=== PATIENT | male | born 1970 | race American Indian/Alaskan Native ===

== ENCOUNTER 2016-12-03 11:13 | Emergency (ER) | payer BC ==
[2016-12-03 12:10] LABS: Hematocrit 46.8 % (35.5-45.6); Hemoglobin 14.9 gm/dl (11.8-15.2); Mean Corpuscular HGB Conc 32 % (32-34); Mean Corpuscular Hemoglobin 28 pg (28-32); Mean Corpuscular Volume 86 fl (84-94); Platelet Count 338 K/mm3 (140-440); Red Blood Count 5.44 M/mm3 (3.65-5.03); Red Cell Distribution Width 13.9 % (13.2-15.2); White Blood Count 15.3 K/mm3 (4.5-11.0)
[2016-12-03 12:17] LABS: Basophils % (Auto) 0.5 % (0.0-1.8); Eosinophils % (Auto) 0.4 % (0.0-4.3)
[2016-12-03 12:24] LABS: Alanine Aminotransferase 28 units/L (7-56); Albumin 4.1 g/dL (3.9-5); Albumin/Globulin Ratio 1.4 %; Alkaline Phosphatase 83 units/L (35-129); Anion Gap 18 mmol/L; Blood Urea Nitrogen 9 mg/dL (9-20); Calcium 9.4 mg/dL (8.4-10.2); Carbon Dioxide 24 mmol/L (22-30); Chloride 96.5 mmol/L (98-107); Glucose 201 mg/dL (75-100); Lipase 98 units/L (13-60); Sodium 134 mmol/L (137-145); Total Protein 7.1 g/dL (6.3-8.2)
--- NOTE | 2016-12-03 13:03 | Emergency Department Report ---
Entered by GIANCARLO CONTRERAS, acting as scribe for CHRISTEN TOBAR PA. Chief Complaint: Abdominal Pain Stated Complaint: LEFT SIDE PAIN/MOUTH RASH Time Seen by Provider: 12/03/16 12:43 - HPI History of Present Illness: 46 y/o male presents c/o left flank pain that started 1 week ago. Sx include n/ v but pt denies dysuria, hematuria or penile discharge. Secondary complaints of left side mouth pain for 8 months, tightness in lower back and chronic intermittent neck spasms. - ROS Review of Systems: as noted in HPI - Exam Vital Signs: Vital Signs 12/03/16 11:41 Temperature 98.4 F Pulse Rate 84 Respiratory 20 Rate Blood Pressure 138/85 O2 Sat by Pulse 98 Oximetry Physical Exam: General: 46 y/o male in no acute distress. Well-developed, well-nourished. CV: Regular rate and rhythm. No murmurs rubs or gallops. Lungs: Clear to auscultation bilaterally. Abdomen: left flank tenderness. No guarding or rebound tenderness. Normal bowel sounds. Mini Neuro: Alert and oriented 3. musc: right neck muscle tenderness, bilateral lumbar spine tenderness. no cervical spine or lumbar spine tenderness MSE screening note: Focused history and physical exam performed. Due to findings the following was ordered:abdominal protocol ED Medical Decision Making - Lab Data Result diagrams: 12/03/16 11:47 12/03/16 11:47 ED Disposition for MSE Condition: Stable Referrals: AMBER NEGRETE MD [Primary Care Provider] - 3-5 Days This documentation as recorded by the scribe,GIANCARLO CONTRERAS,accurately reflects the service I personally performed and the decisions made by EKATERINA ambrocio FABIOLA N, PA.
[2016-12-03 13:15] LABS: Bilirubin,Urine NEG (Negative); Blood,Urine NEG (Negative); Ketones,Urine NEG (Negative); Leukocyte Esterase,Urine NEG (Negative); Nitrite,Urine NEG (Negative); Protein,Urine <15 mg/dL mg/dL (Negative); Urobilinogen,Urine < 2.0 mg/dL (<2.0)
[2016-12-03] MEDS ORDERED: NACL 0.9% 1000 ML 2,000 ML IV ONE (14:27)
[2016-12-03] MEDS ORDERED: NACL ONE (14:59)
--- NOTE | 2016-12-03 15:44 | Emergency Department Report ---
ED Abdominal Pain HPI - General Chief Complaint: Abdominal Pain Stated Complaint: LEFT SIDE PAIN/MOUTH RASH Time Seen by Provider: 12/03/16 14:26 Source: patient Mode of arrival: Ambulatory Limitations: No Limitations - History of Present Illness Complaint: abdominal pain -: Gradual, days(s) Location: LLQ Radiation: none Migration to: no migration Severity: mild Severity scale (0 -10): 2 Quality: aching Consistency: constant Improves With: nothing Worsens With: nothing Associated Symptoms: denies: vomiting, diarrhea, fever, chills, constipation, dysuria, hematemesis, hematochezia, melena, hematuria, anorexia, syncope - Related Data Home Medications Medication Instructions Recorded Confirmed Last Taken metFORMIN [Glucophage] 500 mg PO BID 12/03/16 12/03/16 12/03/16 Previous Rx's Medication Instructions Recorded Last Taken Type Amoxicillin/K Clav Tab [Augmentin 1 each PO BID #20 tablet 12/03/16 Unknown Rx 875MG TAB] HYDROcodone/APAP 5-325 [[place] 1 each PO Q4HR PRN #12 tablet 12/03/16 Unknown Rx 5/325] Allergies Allergy/AdvReac Type Severity Reaction Status Date / Time No Known Allergies Allergy Unverified 07/31/13 09:42 ED Review of Systems ROS: Stated complaint: LEFT SIDE PAIN/MOUTH RASH Other details as noted in HPI Other: GENERAL: No weight change, fatigue, weakness, fever, chills, or night sweats SKIN: No changes in skin or hair, no itching, no rashes, no jaundice HEAD: No trauma, headache, or visual changes EYES: No blurriness, tearing, itching, acute visual loss, conjunctival discoloration, or scleral icterus EARS: No hearing loss, tinnitus, vertigo, or earache NOSE: No rhinorrhea, stuffiness, sneezing, itching, or epistaxis MOUTH: No bleeding gums, hoarseness, sore throat, or swelling CARDIAC: No new murmur, chest pain, palpitations, dyspnea on exertion, orthopnea , PND, or edema RESPIRATORY: No shortness of breath, wheeze, cough, sputum production, hemoptysis, pneumonia, asthma, bronchitis, or emphysema GI: Abdominal pain URINARY: No frequency, urgency, polyuria, dysuria, hematuria, or incontinence MUSCULOSKELETAL: No muscle weakness, joint stiffness, decrease in range of motion, redness, swelling, tenderness NEUROLOGIC: No loss of sensation, numbness, tingling, tremors, weakness, paralysis, seizures HEMATOLOGIC: No anemia, easy bruising, bleeding, petechiae, or purpura ENDOCRINE: No hot or cold intolerance, sweating, polyuria, polydipsia or, polyphagia no thyroid problems PSYCHIATRIC: No change in mood, no anxiety, no depression ED Past Medical Hx - Past Medical History Previous Medical History?: Yes Hx Diabetes: Yes (no meds) Hx Kidney Stones: Yes - Surgical History Past Surgical History?: No - Social History Smoking Status: Current Every Day Smoker Substance Use Type: Alcohol, Non Opiate Pain, Other - Medications Home Medications: Home Medications Medication Instructions Recorded Confirmed Last Taken Type Amoxicillin/K Clav Tab [Augmentin 1 each PO BID #20 tablet 12/03/16 Unknown Rx 875MG TAB] HYDROcodone/APAP 5-325 [[place] 1 each PO Q4HR PRN #12 tablet 12/03/16 Unknown Rx 5/325] metFORMIN [Glucophage] 500 mg PO BID 12/03/16 12/03/16 12/03/16 History ED Physical Exam - General Limitations: No Limitations - Other Other exam information: GENERAL: Patient in no acute distress HEAD: Normocephalic, atraumatic EYES: PERRLA, EOM intact, no scleral icterus, no papilledema, no conjunctival hemorrhage, visual hansen and acuity wnl, NOSE: No tenderness, discharge, sinus tenderness MOUTH: No erythema, bleeding, exudate HEART: Regular rate and rhythm, no murmur, S1-S2 are auscultated, pulses are symmetric LUNGS: No wheezing, rales, rhonchi, bilateral breath sounds ABDOMEN: Normal bowel sounds, no tenderness, no rebound, no guarding, no masses , no CVA tenderness MUSCULOSKELETAL: Normal joint range of motion, no redness, no swelling, no tenderness NEUROLOGIC: GCS 15, Alert and Oriented x3, Cranial nerves intact, normal sensation, normal strength, normal gait, no cerebellar deficit PSYCHIATRIC: No homicidal or suicidal ideation, no anxiety, no depression, no hallucinations SKIN: Skin is warm and dry, no wounds, no rashes ED Course Vital Signs 12/03/16 12/03/16 12/03/16 11:41 13:14 16:20 Temperature 98.4 F 98 F 98.2 F Pulse Rate 84 89 90 Respiratory 20 16 16 Rate Blood Pressure 138/85 Blood Pressure 135/95 139/89 [Left] O2 Sat by Pulse 98 98 96 Oximetry ED Medical Decision Making - Lab Data Result diagrams: 12/03/16 11:47 12/03/16 11:47 - EKG Data When compared to previous EKG there are: no significant change - Radiology Data Radiology results: report reviewed - Medical Decision Making Patient comfortable. Updated with results. Plan discharge with outpatient follow-up. Patient agrees with plan and will return if symptoms worsen. Critical care attestation.: If time is entered above; I have spent that time in minutes in the direct care of this critically ill patient, excluding procedure time. ED Disposition Clinical Impression: Diverticulitis Qualifiers: Diverticulitis site: unspecified part of intestinal tract Diverticulitis bleeding: without bleeding Diverticulitis complication: without perforation or abscess Qualified Code(s): K57.92 - Diverticulitis of intestine, part unspecified, without perforation or abscess without bleeding Disposition: DISCHARGED TO HOME OR SELFCARE Is pt being admited?: No Condition: Stable Instructions: Diverticulitis (ED) Prescriptions: Amoxicillin/K Clav Tab [Augmentin 875MG TAB] 1 each PO BID #20 tablet HYDROcodone/APAP 5-325 [[place] 5/325] 1 each PO Q4HR PRN #12 tablet PRN Reason: Pain Referrals: [facility] [Provider Group] - 2-3 Days AMBER NEGRETE MD [Primary Care Provider] - 2-3 Days Forms: Work/School Release Form(ED)
--- NOTE | 2016-12-03 16:00 | Cat Scan Report ---
CT SCAN OF THE ABDOMEN AND PELVIS WITH CONTRAST: HISTORY: Abdominal pain. TECHNIQUE: Helical CT in 1.25mm intervals following IV contrast. Sagittal and coronal reconstructions. FINDINGS: There are scattered diverticula in the descending colon with focal inflammatory changes and trace surrounding fluid. Acute diverticulitis is suspected until proven otherwise. There is no evidence for abscess or free air. The remaining bowel loops and appendix are unremarkable. The liver is normal in size and is without focal defect. No gallstones or biliary dilatation are noted. The spleen and pancreas demonstrate a normal size and attenuation with no evidence of abnormal mass. The kidneys are normal in size and position with no evidence of hydronephrosis or mass. The adrenal glands are normal. The abdominal aorta is normal. No abnormalities are identified within the retroperitoneum or mesentery. There is no evidence of peritoneal air or fluid. There is no evidence of any abnormal masses or fluid collections within the pelvis. No adenopathy is identified. The bladder is normal. IMPRESSION: Acute diverticulitis of the descending colon.
[2016-12-03 16:30] VITALS: BP 139/89
[2016-12-03] MEDS ORDERED: AUGMENTIN 875 MG PO ONE (16:57)
== END 2016-12-03 17:12 | disposition home or self-care (01) ==
LOC: ED 11:13
DX: K57.92 Diverticulitis of intestine, part unspecified, without perforation or abscess without bleeding (principal); E11.9 Type 2 diabetes mellitus without complications; F17.200 Nicotine dependence, unspecified, uncomplicated
CPT/HCPCS: 36415; 74177; 80053; 81001; 83690; 85025; 96360; 96361; 99284; J7030; Q9967

== ENCOUNTER 2018-10-16 15:10 | Emergency (ER) | payer BC, OTHER ==
[2018-10-16 15:22] VITALS: BP 124/74
--- NOTE | 2018-10-16 15:25 | Emergency Department Report ---
Chief Complaint: High BP Stated Complaint: HBP Time Seen by Provider: 10/16/18 15:20 - HPI History of Present Illness: 48 y o male with a PMH of DM on metformin 1000 mg BID presents to ED stating he was not able to see his PCP and has run out of his metformin x 2 days states he needs his medicattion denies f/cp/sob/dizziness/ - ROS Review of Systems: as noted in HPI - Exam Physical Exam: GENERAL: Alert and oriented x3, no apparent distress, Normal Gait, atraumatic. HEAD: Head is normocephalic and a-traumatic. EYES: Extra ocular muscles are intact. Pupils are equal, round, and reactive to light and accommodation. LUNGS: Symetrical with respiration, No wheezing, no rales or crackles, CTAB. HEART: S1, S2 present, regular rate and rhythm without murmur, no rubs, no gal lops. Non tender to palpation ABDOMEN: No organomegaly was noted,Positive bowel sounds, soft, and non- distended. Nontender to palpation on all Quadrants, NO CVA tenderness. EXTREMITIES/MUSCULOSKELETAL: No cyanosis, clubbing, rash, lesions or edema. SKIN: Warm and dry, No lesions, No ulceration or induration present. MSE screening note: Focused history and physical exam performed. Due to findings the following was ordered: ED Medical Decision Making - Medical Decision Making 48-year-old male with a history of diabetes ran out of his medication presents for medication refill Patient is in no acute distress blood glucose was 201. Patient states he will follow-up with his primary care physician He is in no acute respiratory distress. ED Disposition for MSE Clinical Impression: Medication refill, Diabetes mellitus Disposition: -01 TO HOME OR SELFCARE Is pt being admited?: No Does the pt Need Aspirin: No Condition: Stable Instructions: Diabetes Mellitus Type 2 in Adults (ED) Additional Instructions: follow up with your PCP take your medication as prescribed Prescriptions: metFORMIN [Glucophage] 1,000 mg PO BID #60 tablet Referrals: AMBER NEGRETE MD [Primary Care Provider] - 3-5 Days Forms: Work/School Release Form(ED) Time of Disposition: 15:36
== END 2018-10-16 15:44 | disposition home or self-care (01) ==
LOC: ED 15:10
DX: E11.9 Type 2 diabetes mellitus without complications (principal); Z76.0 Encounter for issue of repeat prescription; Z79.84 Long term (current) use of oral hypoglycemic drugs
CPT/HCPCS: 82962; 99282

== ENCOUNTER 2019-10-14 19:47 | Emergency (ER) | payer BC ==
[2019-10-15] MEDS ORDERED: TETANUS,DIPH,PERTUSS(ACELL) VACCINE 0.5 ML SYRINGE IM ONE (02:41)
--- NOTE | 2019-10-15 02:47 | Emergency Department Report ---
- General Chief complaint: Skin/Abscess/Foreign Body Stated complaint: BITE ON BACK OF NECK Time Seen by Provider: 10/15/19 02:28 Source: patient Mode of arrival: Ambulatory Limitations: No Limitations - History of Present Illness Initial comments: Patient is a 49-year-old male who presents emergency room with complaints of a lump to the back of the neck for a week. He states he is also had multiple small lumps present in the right axilla. He denies any drainage, fever, vomiting, chills. He states that he felt like he had a staying abdomen on the back of the neck and believes he was bit by something but did not see anything. He states that he has had these come up before but has never had to have an I&D. He states his last tetanus immunization has been greater than 10 years. He has a past medical history of diabetes which he states is well controlled on metformin. He denies any allergies to medications. - Related Data Home Medications Medication Instructions Recorded Confirmed Last Taken metFORMIN [Glucophage] 500 mg PO BID 12/03/16 12/03/16 12/03/16 Previous Rx's Medication Instructions Recorded Last Taken Type Amoxicillin/K Clav Tab [Augmentin 1 each PO BID #20 tablet 12/03/16 Unknown Rx 875MG TAB] HYDROcodone/APAP 5-325 [[place] 1 each PO Q4HR PRN #12 tablet 12/03/16 Unknown Rx 5/325] metFORMIN [Glucophage] 1,000 mg PO BID #60 tablet 10/16/18 Unknown Rx Clindamycin [Clindamycin CAP] 450 mg PO TID 7 Days #63 capsule 10/15/19 Unknown Rx Sulfamethoxazole/Trimethoprim 1 each PO BID 10 Days #20 tablet 10/15/19 Unknown Rx [Bactrim DS TAB] Allergies Allergy/AdvReac Type Severity Reaction Status Date / Time No Known Allergies Allergy Verified 10/16/18 15:20 Abscess Boil HPI - HPI Chief Complaint: Skin/Abscess/Foreign Body Stated Complaint: BITE ON BACK OF NECK Time Seen by Provider: 10/15/19 02:28 Home Medications: Home Medications Medication Instructions Recorded Confirmed Last Taken metFORMIN [Glucophage] 500 mg PO BID 12/03/16 12/03/16 12/03/16 Previous Rx's Medication Instructions Recorded Last Taken Type Amoxicillin/K Clav Tab [Augmentin 1 each PO BID #20 tablet 12/03/16 Unknown Rx 875MG TAB] HYDROcodone/APAP 5-325 [[place] 1 each PO Q4HR PRN #12 tablet 12/03/16 Unknown Rx 5/325] metFORMIN [Glucophage] 1,000 mg PO BID #60 tablet 10/16/18 Unknown Rx Clindamycin [Clindamycin CAP] 450 mg PO TID 7 Days #63 capsule 10/15/19 Unknown Rx Sulfamethoxazole/Trimethoprim 1 each PO BID 10 Days #20 tablet 10/15/19 Unknown Rx [Bactrim DS TAB] Allergies/Adverse Reactions: Allergies Allergy/AdvReac Type Severity Reaction Status Date / Time No Known Allergies Allergy Verified 10/16/18 15:20 ED Review of Systems ROS: Stated complaint: BITE ON BACK OF NECK Other details as noted in HPI Comment: All other systems reviewed and negative ED Past Medical Hx - Past Medical History Previous Medical History?: Yes Hx Diabetes: Yes (no meds) Hx Kidney Stones: Yes - Surgical History Past Surgical History?: No - Social History Smoking Status: Current Every Day Smoker - Medications Home Medications: Home Medications Medication Instructions Recorded Confirmed Last Taken Type Amoxicillin/K Clav Tab [Augmentin 1 each PO BID #20 tablet 12/03/16 Unknown Rx 875MG TAB] HYDROcodone/APAP 5-325 [[place] 1 each PO Q4HR PRN #12 tablet 12/03/16 Unknown Rx 5/325] metFORMIN [Glucophage] 500 mg PO BID 12/03/16 12/03/16 12/03/16 History metFORMIN [Glucophage] 1,000 mg PO BID #60 tablet 10/16/18 Unknown Rx Clindamycin [Clindamycin CAP] 450 mg PO TID 7 Days #63 capsule 10/15/19 Unknown Rx Sulfamethoxazole/Trimethoprim 1 each PO BID 10 Days #20 tablet 10/15/19 Unknown Rx [Bactrim DS TAB] ED Physical Exam - General Limitations: No Limitations General appearance: alert, in no apparent distress - Head Head exam: Present: atraumatic, normocephalic - Eye Eye exam: Present: normal appearance - ENT ENT exam: Present: mucous membranes moist - Neurological Exam Neurological exam: Present: alert, oriented X3 - Psychiatric Psychiatric exam: Present: normal affect, normal mood - Skin Skin exam: Present: warm, dry, other (1 cm area of induration present to the right posterior neck, no central fluctuance, no drainage, no necrosis, no blistering, no surrounding erythema, three small areas of induration present to the right axilla, no central fluctuance, no surrounding erythema, no necrosis, no blistering) ED Course Vital Signs 10/14/19 20:49 Temperature 98.2 F Pulse Rate 95 H Respiratory 18 Rate Blood Pressure 120/78 O2 Sat by Pulse 95 Oximetry ED Medical Decision Making - Medical Decision Making Patient is a 49-year-old male who presents emergency room with complaints of a lump to the back of the neck for a week. He states he is also had multiple small lumps present in the right axilla. He denies any drainage, fever, vomiting, chills. He states that he felt like he had a staying abdomen on the back of the neck and believes he was bit by something but did not see anything. He states that he has had these come up before but has never had to have an I&D. He states his last tetanus immunization has been greater than 10 years. He has a past medical history of diabetes which he states is well controlled on metformin. He denies any allergies to medications. VSS. on exam: 1 cm area of induration present to the right posterior neck, no central fluctuance, no drainage, no necrosis, no blistering, no surrounding erythema, three small areas of induration present to the right axilla, no central fluctuance, no surrounding erythema, no necrosis, no blistering. Examination consistent with early abscesses versus hidradenitis in the axilla. Patient does not need incision and drainage at this time. pt given tetanus immunization. Patient will be placed on clindamycin and Bactrim and discussed with pt that he needed to have the area reexamined in 3 days. advised to Please take medication as prescribed to completion. Please use warm compresses 3 times a day. Please have the area reexamined in the next 3 days by your primary care physician. Return to the emergency room immediately for any new or worsening symptoms or if symptoms are not improving. You may have to have a procedure called an incision and drainage performed if it enlarges and becomes worse. - Differential Diagnosis Abscess, cellulitis, folliculitis, hidradenitis, insect bite, spider bite Critical care attestation.: If time is entered above; I have spent that time in minutes in the direct care of this critically ill patient, excluding procedure time. ED Disposition Clinical Impression: Abscess Disposition: DC-01 TO HOME OR SELFCARE Is pt being admited?: No Does the pt Need Aspirin: No Condition: Stable Instructions: Abscess (ED) Additional Instructions: Please take medication as prescribed to completion. Please use warm compresses 3 times a day. Please have the area reexamined in the next 3 days by your primary care physician. Return to the emergency room immediately for any new or worsening symptoms or if symptoms are not improving. You may have to have a procedure called an incision and drainage performed if it enlarges and becomes worse. Prescriptions: Sulfamethoxazole/Trimethoprim [Bactrim DS TAB] 1 each PO BID 10 Days #20 tablet Clindamycin [Clindamycin CAP] 450 mg PO TID 7 Days #63 capsule Referrals: CONNER FAUST MD [Staff Physician] - 3-5 Days [facility] [Outside] - 3-5 Days [facility] [Outside] - 3-5 Days Time of Disposition: 02:44 Print Language: WALLISIAN
[2019-10-15 07:39] VITALS: BP 131/89
== END 2019-10-15 03:00 | disposition home or self-care (01) ==
LOC: ED 19:47
DX: L02.11 Cutaneous abscess of neck (principal); E11.9 Type 2 diabetes mellitus without complications; F17.200 Nicotine dependence, unspecified, uncomplicated; Z87.442 Personal history of urinary calculi; Z79.84 Long term (current) use of oral hypoglycemic drugs; Z79.899 Other long term (current) drug therapy
CPT/HCPCS: 90471; 90715; 99282

== ENCOUNTER 2019-11-26 14:57 | Emergency (ER) | payer BC ==
[2019-11-26 15:06] VITALS: BP 133/87
--- NOTE | 2019-11-26 15:51 | Emergency Department Report ---
Chief Complaint: Sore Throat Stated Complaint: SORE THROAT Time Seen by Provider: 11/26/19 15:47 - HPI History of Present Illness: 49-year-old -[place] male presents to the emergency room for sore throat x2 months. Patient states that he had recently stopped smoking last month. Review of patient's chart shows that he was here last month and was placed on clindamycin and Bactrim. Patient states is been taking Aleve. Patient currently takes no medications on a daily basis - Exam Vital Signs: Vital Signs 11/26/19 15:03 Temperature 98.1 F Pulse Rate 91 H Respiratory 18 Rate Blood Pressure 133/87 [Left] O2 Sat by Pulse 97 Oximetry Physical Exam: Gen: alert oriented NAD Throat mild edematous of the tonsils, no exudate no lesions. No trouble swallowing Ambulatory without difficulties MSE screening note: Focused history and physical exam performed. Due to findings the following was ordered: 49-year-old -[place] male presents to the emergency room for sore throat x2 months. Patient states that he had recently stopped smoking last month. Review of patient's chart shows that he was here last month and was placed on c lindamycin and Bactrim. Patient states is been taking Aleve. Patient currently takes no medications on a daily basis. Patient has been on 2 antibiotics within a month that we will treat any strep t hroat. I discussed with patient that he needs to follow-up with the ear nose and throat provider. Patient continue taking ibuprofen and Tylenol as needed for pain management ED Disposition for MSE Disposition: Z-07 MED SCREENING EXAM-LEFT Is pt being admited?: No Does the pt Need Aspirin: No Condition: Stable Additional Instructions: Patient has been on 2 antibiotics within a month that we will treat any strep throat. I discussed with patient that he needs to follow-up with the ear nose and throat provider. Patient continue taking ibuprofen and Tylenol as needed for pain management Referrals: BESSIE GARDNUO MD [Staff Physician] - 3-5 Days Forms: Work/School Release Form(ED)
== END 2019-11-26 16:07 | disposition left against medical advice (07) ==
LOC: ED 14:57
DX: J02.9 Acute pharyngitis, unspecified (principal)
CPT/HCPCS: 99281

== ENCOUNTER 2021-03-26 19:34 | Emergency (ER) | payer BC ==
[2021-03-26 21:36] VITALS: BP 145/87
[2021-03-26 22:13] LABS: Basophils # (Auto) 0.1 K/mm3 (0.0-0.1); Basophils % (Auto) 1.1 % (0.0-1.8); Eosinophils # (Auto) 0.1 K/mm3 (0.0-0.4); Eosinophils % (Auto) 0.8 % (0.0-4.3); Hematocrit 46.7 % (35.5-45.6); Hemoglobin 15.7 gm/dl (11.8-15.2); Lymphocytes # (Auto) 2.1 K/mm3 (1.2-5.4); Lymphocytes % (Auto) 25.7 % (13.4-35.0); Mean Corpuscular HGB Conc 34 % (32-34); Mean Corpuscular Volume 86 fl (84-94); Monocytes # (Auto) 0.8 K/mm3 (0.0-0.8); Monocytes % (Auto) 10.1 % (0.0-7.3); Platelet Count 297 K/mm3 (140-440); Red Blood Count 5.45 M/mm3 (3.65-5.03); Red Cell Distribution Width 14.1 % (13.2-15.2)
[2021-03-26 22:24] LABS: Alanine Aminotransferase 43 units/L (7-56); Albumin 4.3 g/dL (3.9-5); BUN/Creatinine Ratio 12; Blood Urea Nitrogen 11 mg/dL (9-20); Calcium 9.1 mg/dL (8.4-10.2); Hemolysis Index 23
--- NOTE | 2021-03-27 00:43 | Emergency Department Report ---
ED General Adult HPI - General Chief complaint: Dizziness Stated complaint: DIZZNESS,NUMBNESS IN FINGERS AND FOOT Source: patient Mode of arrival: Ambulatory Limitations: No Limitations - History of Present Illness Initial comments: Patient is a 50-year-old -[place] male with a history of [id number] diabetes who presents to the ED with complaint of persistent intermittent bilateral hand and finger as well as foot and toe tingling and numbness sensations for the last 5 months. Patient states that in the last 2 weeks, the symptoms have been more frequent in occurrence especially at rest. Patient also is complains of intermittent lightheadedness and states that his blood sugar is usually between 160 mg/dL to 180 mg/dL. Patient states that he takes Metformin 1000 mg twice a day. Patient denies chest pain, shortness of breath, syncope, fever and chills, dizziness, palpitations, traumatic injury, heavy lifting, abdominal pain, back pain or change in vision, dysuria or urinary frequency and urgency and hematuria. MD Complaint: bilateral upper and lower extremity tingling and numbness sensations -: Gradual, month(s) (5) Location: upper extremity (bilaterally), lower extremity (bilaterally) Radiation: extremity (diffuse upper and lower extremities) Severity scale (0 -10): 7 Quality: aching, sharp Consistency: constant Improves with: none Worsens with: none Associated Symptoms: denies other symptoms. denies: confusion, chest pain, cough, diaphoresis, fever/chills, headaches, malaise, nausea/vomiting, rash, seizure, shortness of breath, syncope, weakness Treatments Prior to Arrival: none - Related Data Home Medications Medication Instructions Recorded Confirmed Last Taken metFORMIN [Glucophage] 500 mg PO BID 12/03/16 12/03/16 12/03/16 Previous Rx's Medication Instructions Recorded Last Taken Type Amoxicillin/K Clav Tab [Augmentin 1 each PO BID #20 tablet 12/03/16 Unknown Rx 875MG TAB] HYDROcodone/APAP 5-325 [[place] 1 each PO Q4HR PRN #12 tablet 12/03/16 Unknown Rx 5/325] metFORMIN [Glucophage] 1,000 mg PO BID #60 tablet 10/16/18 Unknown Rx Clindamycin [Clindamycin CAP] 450 mg PO TID 7 Days #63 capsule 10/15/19 Unknown Rx Sulfamethoxazole/Trimethoprim 1 each PO BID 10 Days #20 tablet 10/15/19 Unknown Rx [Bactrim DS TAB] Gabapentin 300 mg PO BID #90 cap 03/27/21 Unknown Rx Naproxen 500 mg PO Q12H PRN #30 tablet 03/27/21 Unknown Rx Allergies Allergy/AdvReac Type Severity Reaction Status Date / Time No Known Allergies Allergy Verified 11/26/19 15:01 ED Review of Systems ROS: Stated complaint: DIZZNESS,NUMBNESS IN FINGERS AND FOOT Other details as noted in HPI Constitutional: denies: chills, fever Eyes: denies: eye pain, eye discharge, vision change ENT: denies: ear pain, throat pain Respiratory: denies: cough, shortness of breath, wheezing Cardiovascular: denies: chest pain, palpitations Endocrine: no symptoms reported Gastrointestinal: denies: abdominal pain, nausea, vomiting, diarrhea Genitourinary: denies: urgency, dysuria Musculoskeletal: arthralgia (bilateral upper and lower extremities). denies: back pain, joint swelling Skin: denies: rash, lesions Neurological: denies: headache, weakness, paresthesias Psychiatric: denies: anxiety, depression Hematological/Lymphatic: denies: easy bleeding, easy bruising ED Past Medical Hx - Past Medical History Hx Diabetes: Yes (no meds) Hx Kidney Stones: Yes - Social History Smoking Status: Former Smoker Substance Use Type: None - Medications Home Medications: Home Medications Medication Instructions Recorded Confirmed Last Taken Type Amoxicillin/K Clav Tab [Augmentin 1 each PO BID #20 tablet 12/03/16 Unknown Rx 875MG TAB] HYDROcodone/APAP 5-325 [[place] 1 each PO Q4HR PRN #12 tablet 12/03/16 Unknown Rx 5/325] metFORMIN [Glucophage] 500 mg PO BID 12/03/16 12/03/16 12/03/16 History metFORMIN [Glucophage] 1,000 mg PO BID #60 tablet 10/16/18 Unknown Rx Clindamycin [Clindamycin CAP] 450 mg PO TID 7 Days #63 capsule 10/15/19 Unknown Rx Sulfamethoxazole/Trimethoprim 1 each PO BID 10 Days #20 tablet 10/15/19 Unknown Rx [Bactrim DS TAB] Gabapentin 300 mg PO BID #90 cap 03/27/21 Unknown Rx Naproxen 500 mg PO Q12H PRN #30 tablet 03/27/21 Unknown Rx ED Physical Exam - General Limitations: No Limitations General appearance: alert, in no apparent distress - Head Head exam: Present: atraumatic, normocephalic, normal inspection - Eye Eye exam: Present: normal appearance, PERRL, EOMI Pupils: Present: normal accommodation - ENT ENT exam: Present: normal exam, normal orophraynx, mucous membranes moist, TM's normal bilaterally, normal external ear exam - Neck Neck exam: Present: normal inspection, full ROM. Absent: tenderness - Respiratory Respiratory exam: Present: normal lung sounds bilaterally. Absent: respiratory distress, wheezes, rales, rhonchi, chest wall tenderness, accessory muscle use, decreased breath sounds, prolonged expiratory - Cardiovascular Cardiovascular Exam: Present: regular rate, normal rhythm, normal heart sounds. Absent: systolic murmur, diastolic murmur, rubs, gallop - GI/Abdominal GI/Abdominal exam: Present: soft, normal bowel sounds. Absent: tenderness, guarding, hyperactive bowel sounds, hypoactive bowel sounds, organomegaly, mass - Extremities Exam Extremities exam: Present: normal inspection, full ROM, normal capillary refill - Back Exam Back exam: Present: normal inspection, full ROM. Absent: tenderness, CVA tenderness (R), CVA tenderness (L), muscle spasm, paraspinal tenderness, vertebral tenderness - Neurological Exam Neurological exam: Present: alert, oriented X3, CN II-XII intact, normal gait, reflexes normal - Psychiatric Psychiatric exam: Present: normal affect, normal mood - Skin Skin exam: Present: warm, dry, intact, normal color. Absent: rash ED Course Vital Signs 03/26/21 03/26/21 21:31 21:34 Temperature 98.1 F 98.1 F Respiratory 18 18 Rate Blood Pressure 145/87 ED Medical Decision Making - Lab Data Result diagrams: 03/26/21 21:41 03/26/21 21:41 - Medical Decision Making This is a 50-year-old -[place] male with a history of [id number] diabetes who presents to the ED with complaint of pe rsistent intermittent bilateral hand and finger as well as foot and toe tingling and numbness sensations for the last 5 months. Patient states that in the last 2 weeks, the symptoms have been more frequent in occurrence especially at rest. Patient also is complains of intermittent lightheadedness and states that his blood sugar is usually between 160 mg/dL to 180 mg/dL. Patient states that he t akes Metformin 1000 mg twice a day. In the ED, patient is alert and oriented x3 and is not in any distress. Lab test results were reviewed and are all nonactionable. Based on the history and physical exam findings, the patient symptoms are likely due to diabetic neuropathy affecting his bilateral hands and feet. Patient was discharged home on medications and advised to ensure that he takes his medications appropriately and regularly and follow-up with his primary care physician in 5 to 7 days for reevaluation. Patient was also advised to return to the ED immediately if symptoms get worse. - Differential Diagnosis Diabetic neuropathy; chronic sciatica; cervical radiculopapthy Critical care attestation.: If time is entered above; I have spent that time in minutes in the direct care of this critically ill patient, excluding procedure time. ED Disposition Clinical Impression: Diabetic neuropathy associated with type 2 diabetes mellitus Qualifiers: Diabetes mellitus complication detail: diabetic polyneuropathy Qualified Code(s): E11.42 - Type 2 diabetes mellitus with diabetic polyneuropathy Disposition: HOME / SELF CARE / HOMELESS Is pt being admited?: No Does the pt Need Aspirin: No Condition: Stable Instructions: Diabetes Mellitus Type 2 in Adults (ED), Preventing Diabetes Mellitus Complications, Type 2 Diabetes Mellitus, Self Care, Adult, [id number], Diabetic Neuropathy, Peripheral Neuropathy Additional Instructions: All lab test results were reviewed and are all nonactionable. Your symptoms are likely due to diabetic neuropathy which is a complication of poorly controlled type 2 diabetes. Therefore take medications including your regular medications as advised, drink plenty of fluids and follow-up with your primary care physician in 7 to 10 days for reevaluation. Prescriptions: Gabapentin 300 mg PO BID #90 cap Naproxen 500 mg PO Q12H PRN #30 tablet PRN Reason: Pain , Severe (7-10) Referrals: CONNER FAUST MD [Staff Physician] - 3-5 Days Forms: Work/School Release Form(ED) Time of Disposition: 00:45 Print Language: SETSWANA
== END 2021-03-27 01:08 | disposition home or self-care (01) ==
LOC: ED 19:34
DX: R42 Dizziness and giddiness (principal); R20.0 Anesthesia of skin; R20.2 Paresthesia of skin; E11.42 Type 2 diabetes mellitus with diabetic polyneuropathy; Z87.442 Personal history of urinary calculi; Z87.891 Personal history of nicotine dependence
CPT/HCPCS: 36415; 80053; 82962; 84484; 85025; 99283